=== PATIENT | male | born 1955 | race Two or more races ===

== ENCOUNTER 2017-09-07 17:57 | Inpatient (IN) | payer MEDICAID ==
[~2017-09-07] VITALS: Ht 180.3 cm; Wt 124.3 kg
[2017-09-07 18:00] VITALS: BP 159/72
[2017-09-07] MEDS ORDERED: Morphine Sulfate 4mg/ml Inj IVP ONE (18:15)
[2017-09-07] MEDS ORDERED: Nitroglycerin 2% oint pkt TOPIC ONE (18:15)
[2017-09-07 18:35] LABS: APPEARANCE,URINE CLEAR; KETONES,URINE 2+ (NEGATIVE); LEUKOCYTE ESTERASE ,URINE 2+ (NEGATIVE); NITRITE,URINE NEGATIVE (NEGATIVE); PH,URINE 5 (4.5-8.0); PROTEIN,URINE NEGATIVE (NEGATIVE); UROBILINOGEN,URINE NORMAL MG/DL (0.0-1.0)
[2017-09-07 18:48] LABS: WBC,URINE 15-20 /HPF (0 - 0)
[2017-09-07 18:49] LABS: ALANINE AMINOTRANSFERASE 32 U/L (12-78); ALBUMIN/GLOBULIN RATIO 0.9 (1.0-2.7); ASPARTATE AMINO TRANSFERASE 19 U/L (15-37); CALCIUM 9.1 MG/DL (8.5-10.1); CARBON DIOXIDE 27 MMOL/L (21-32); CHLORIDE 99 MMOL/L (98-107); CREATININE 1.1 MG/DL (0.55-1.00); GLOMERULAR FILTRATION RATE > 60 mL/min (>60); SODIUM 133 MMOL/L (136-145)
[2017-09-07 18:49] LABS: BACTERIA,URINE FEW /HPF; SQUAMOUS EPITHELIAL CELL,UR FEW /LPF (NONE/OCC)
[2017-09-07 18:53] LABS: ANION GAP 7 (5-15)
[2017-09-07 18:54] LABS: MEAN CORPUSCULAR HEMOGLOBIN 29.5 PG (27.0-31.0); MEAN CORPUSCULAR HGB CONC 30.6 G/DL (32.0-36.0); MEAN CORPUSCULAR VOLUME 96 FL (80-99); MEAN PLATELET VOLUME 6.9 FL (6.5-10.1); PLATELET COUNT 237 K/UL (150-450); RED BLOOD COUNT 5.17 M/UL (4.70-6.10); RED CELL DISTRIBUTION WIDTH 12.3 % (11.6-14.8); WHITE BLOOD COUNT 18.4 K/UL (4.8-10.8)
[2017-09-07 18:55] LABS: EOSINOPHILS % (AUTO) 0.6 % (0.0-3.0); LYMPHOCYTES % (AUTO) 15.6 % (20.0-45.0); MONOCYTES % (AUTO) 7.5 % (1.0-10.0); NEUTROPHILS % (AUTO) 75.7 % (45.0-75.0)
[2017-09-07 18:56] LABS: BASOPHILS % (AUTO) 0.6 % (0.0-2.0)
[2017-09-07 18:58] LABS: PROTHROMBIN TIME 10.8 SEC (9.30-11.50)
[2017-09-07] MEDS ORDERED: NKM (19:13)
[2017-09-07 19:55] VITALS: BP 134/72
[2017-09-07] MEDS ORDERED: cefTRIAXone 1 GM in NS 55 ML IVPB ONE (20:15)
[2017-09-07 21:24] VITALS: BP 118/64
[2017-09-07 21:24] LABS: REFLEX LACTIC ACID YES OR NO YES
--- NOTE | 2017-09-07 21:55 | Emergency Room Report ---
History of Present Illness General Chief Complaint: Chest Pain Source: Patient Present Illness HPI The patient presents with chest pain. He is shortness of breath. Also broke out in sweats the last 2 days. He denies any productive cough at this time. The pain is pleuritic but also somewhat exertional. Left-sided gaze up into her shoulder. The patient has had pain like this in the past. He states he was 23 when he had similar pain. He is a member what the diagnosis was stopped at that time. Patient has risk factors of diabetes he does not smoke. No HTN. The patient did not take any medication for this. No dysuria, rashes. Allergies: Coded Allergies: No Known Allergies (Unverified , 09/07/17) Patient History Past Medical History: see triage record Social History: Denies: smoking, alcohol use, drug use Social History Narrative at home Reviewed Nursing Documentation: PMH: Agreed, PSxH: Agreed Nursing Documentation-PMH Past Medical History: No Stated History Review of Systems All Other Systems: negative except mentioned in HPI Physical Exam Vital Signs Date Time Temp Pulse Resp B/P (MAP) Pulse Ox O2 Delivery O2 Flow Rate FiO2 09/07/17 17:59 99.7 108 20 172/74 95 Room Air Sp02 EP Interpretation: reviewed, normal General Appearance: well appearing, no apparent distress, GCS 15 Head: normocephalic Eyes: bilateral eye normal inspection, bilateral eye PERRL ENT: moist mucus membranes Neck: supple Respiratory: lungs clear, normal breath sounds Cardiovascular #1: regular rate, rhythm Cardiovascular #2: 2+ radial (R) Gastrointestinal: normal inspection, normal bowel sounds, non tender, no mass, non-distended Musculoskeletal: back normal, gait/station normal, normal range of motion Neurologic: alert, oriented x3, grossly normal Psychiatric: mood/affect normal Skin: normal inspection, warm/dry Medical Decision Making Diagnostic Impression: Primary Impression: Sepsis Qualified Codes: A41.9 - Sepsis, unspecified organism Additional Impression: Left lower lobe pneumonia Qualified Codes: J18.1 - Lobar pneumonia, unspecified organism ER Course Patient presents with diaphoresis and chest pain. He is also febrile here. Differential includes acute myocardial infarction, acute coronary syndrome, pneumonia, bronchitis, sepsis amongst others. Evaluation will be with blood cultures, EKG, chest x-ray and labs. The patient be treated with IV hydration, aspirin, Tylenol. The patient x-ray reveals a left-sided infiltrate. His EKG does not show any acute injury. White count is 18,000 lactate is elevated. Glucose slightly elevated. Antibiotics are begun. Fluid bolus for sepsis begun. With treatment the patient is improved. Admit med Dr. Dumont. Laboratory Tests Test 09/07/17 18:00 09/07/17 18:15 09/07/17 18:20 White Blood Count 18.4 K/UL (4.8-10.8) H Red Blood Count 5.17 M/UL (4.70-6.10) Hemoglobin 15.3 G/DL (14.2-18.0) Hematocrit 49.8 % (42.0-52.0) Mean Corpuscular Volume 96 FL (80-99) Mean Corpuscular Hemoglobin 29.5 PG (27.0-31.0) Mean Corpuscular Hemoglobin Concent 30.6 G/DL (32.0-36.0) L Red Cell Distribution Width 12.3 % (11.6-14.8) Platelet Count 237 K/UL (150-450) Mean Platelet Volume 6.9 FL (6.5-10.1) Neutrophils (%) (Auto) 75.7 % (45.0-75.0) H Lymphocytes (%) (Auto) 15.6 % (20.0-45.0) L Monocytes (%) (Auto) 7.5 % (1.0-10.0) Eosinophils (%) (Auto) 0.6 % (0.0-3.0) Basophils (%) (Auto) 0.6 % (0.0-2.0) Prothrombin Time 10.8 SEC (9.30-11.50) Prothrombin Time INR 1.0 (0.9-1.1) PTT 27 SEC (23-33) D-Dimer 266 ng/mL (<500) Sodium Level 133 MMOL/L (136-145) L Potassium Level 4.0 MMOL/L (3.5-5.1) Chloride Level 99 MMOL/L (98-107) Carbon Dioxide Level 27 MMOL/L (21-32) Anion Gap 7 (5-15) Blood Urea Nitrogen 13 mg/dL (7-18) Creatinine 1.1 MG/DL (0.55-1.00) H Estimate Glomerular Filtration Rate > 60 mL/min (>60) Glucose Level 254 MG/DL (74-106) H Calcium Level 9.1 MG/DL (8.5-10.1) Total Bilirubin 0.4 MG/DL (0.2-1.0) Aspartate Amino Transferase (AST) 19 U/L (15-37) Alanine Aminotransferase (ALT) 32 U/L (12-78) Alkaline Phosphatase 123 U/L (46-116) H Lactate Dehydrogenase 189 U/L (81-234) Total Creatine Kinase 86 U/L (26-308) Troponin I 0.000 ng/mL (0.000-0.056) Pro-B-Type Natriuretic Peptide 64 (0-125) Total Protein 8.0 G/DL (6.4-8.2) Albumin 3.8 G/DL (3.4-5.0) Globulin 4.2 g/dL Albumin/Globulin Ratio 0.9 (1.0-2.7) L Urine Color Pale yellow Urine Appearance Clear Urine pH 5 (4.5-8.0) Urine Specific [place] 1.020 (1.005-1.035) Urine Protein Negative (NEGATIVE) Urine Glucose (UA) 4+ (NEGATIVE) H Urine Ketones 2+ (NEGATIVE) H Urine Occult Blood Negative (NEGATIVE) Urine Nitrite Negative (NEGATIVE) Urine Bilirubin Negative (NEGATIVE) Urine Urobilinogen Normal MG/DL (0.0-1.0) Urine Leukocyte Esterase 2+ (NEGATIVE) H Urine RBC 2-4 /HPF (0 - 0) H Urine WBC 15-20 /HPF (0 - 0) H Urine Squamous Epithelial Cells Few /LPF (NONE/OCC) Urine Bacteria Few /HPF (NONE) Lactic Acid Level 2.40 mmol/L (0.66-2.22) H EKG Diagnostic Results ST Segments: no acute changes Rhythm Strip Diag. Results EP Interpretation: yes Rhythm: no PVC's, no ectopy, other - Sinus tachycardia Chest X-Ray Diagnostic Results Chest X-Ray Diagnostic Results : Chest X-Ray Ordered: Yes # of Views/Limited/Complete: 1 View Indication: Chest Pain EP Interpretation: Yes Interpretation: no effusion, no pneumothorax, other - Left lower lobe infiltrate Impression: Other Electronically Signed by: Electronically signed by Moi Newell MD Last Vital Signs Date Time Temp Pulse Resp B/P (MAP) Pulse Ox O2 Delivery O2 Flow Rate FiO2 09/08/17 00:15 98.6 77 18 131/81 96 Room Air Status: improved Disposition: ADMITTED INPATIENT Condition: Serious Referrals: NOT CHOSEN JOHN/,REFERRING (PCP) Moi Newell M.D. Sep 07, 2017 21:55
[2017-09-07] MEDS ORDERED: NS 1000ml 3,400 ML IVLG ONE (22:00)
[2017-09-07] MEDS ORDERED: Morphine Sulfate 4mg/ml Inj IVP PRN (22:30)
[2017-09-07] MEDS ORDERED: Miralax 17gm pkt ORAL PRN (22:30)
[2017-09-07] MEDS ORDERED: Albuterol/Ipratropium 3ml neb HHN PRN (22:30)
[2017-09-07] MEDS ORDERED: LORazepam Inj 2mg/ml 1ml IV PRN (22:30)
[2017-09-07 22:56] VITALS: BP 123/67
[2017-09-07] MEDS ORDERED: Vancomycin 1 GM in D5W 275 ML IV SCH (23:00)
[2017-09-08 00:15] VITALS: BP 131/81
[2017-09-08] MEDS ORDERED: Vancomycin 1250mg/D5W 250ml IVPB SCH (01:00)
[2017-09-08 04:00] VITALS: BP_SYST 114; BP_SYST 118; BP_DIAS 72; BP_DIAS 74
[2017-09-08 07:45] LABS: BASOPHILS % (AUTO) 0.6 % (0.0-2.0); EOSINOPHILS % (AUTO) 0.9 % (0.0-3.0); LYMPHOCYTES % (AUTO) 26.8 % (20.0-45.0); MEAN CORPUSCULAR HEMOGLOBIN 31.2 PG (27.0-31.0); MEAN CORPUSCULAR HGB CONC 33.6 G/DL (32.0-36.0); MEAN CORPUSCULAR VOLUME 93 FL (80-99); MEAN PLATELET VOLUME 7.7 FL (6.5-10.1); MONOCYTES % (AUTO) 13.4 % (1.0-10.0); NEUTROPHILS % (AUTO) 58.3 % (45.0-75.0); PLATELET COUNT 231 K/UL (150-450); RED BLOOD COUNT 4.73 M/UL (4.70-6.10); WHITE BLOOD COUNT 11.7 K/UL (4.8-10.8)
[2017-09-08 07:56] VITALS: BP 139/79
[2017-09-08 08:17] LABS: ANION GAP 8 (5-15); CARBON DIOXIDE 24 MMOL/L (21-32); CHLORIDE 102 MMOL/L (98-107); CREATININE 0.9 MG/DL (0.55-1.30); GLOMERULAR FILTRATION RATE > 60 mL/min (>60); PHOSPHORUS 2.9 MG/DL (2.5-4.9); POTASSIUM 3.6 MMOL/L (3.5-5.1); SODIUM 134 MMOL/L (136-145)
[2017-09-08] MEDS: Heparin 5000 units/ml inj SUBQ SCH ×2 (08:47→20:31)
[2017-09-08] MEDS ORDERED: Cefepime HCl 2 GM in D5W 110 ML IV SCH (09:00)
--- NOTE | 2017-09-08 10:20 | Diagnostic Imaging Report ---
Indication: Dyspnea Comparison: None A single view chest radiograph was obtained. Findings: Interstitial densities, vascular prominence and cardiomegaly [place]. Bones are unremarkable. Impression: Suspected mild interstitial edema/CHF
[2017-09-08 11:44] VITALS: BP 120/80
--- NOTE | 2017-09-08 12:21 | Consultation ---
History of Present Illness General Date patient seen: Sep 08, 2017 Chief Complaint: Chest Pain Present Illness HPI 62 year old male with hx of DM presented with chest pain. He is shortness of breath. Also broke out in sweats the last 2 days. He denies any productive cough at this time. The pain is pleuritic but also somewhat exertional. He was febrile and had interstitial marking on the cxr. He is admitted to telemetry for further work up. Allergies: Coded Allergies: No Known Allergies (Unverified , 09/07/17) Medication History Scheduled No Known Medications* (NKM - No Known Medications*), 0 ., (Reported) Patient History Healthcare decision maker Resuscitation status Full Code Advanced Directive on File No Past Medical/Surgical History Past Medical/Surgical History: (1) Diabetes mellitus Review of Systems Constitutional: Reports: no symptoms Eye: Reports: no symptoms Respiratory: Reports: no symptoms Cardiovascular: Reports: no symptoms All Other Systems: negative except mentioned in HPI Physical Exam General Appearance: WD/WN, no apparent distress Lines, tubes and drains: peripheral HEENT: normocephalic, atraumatic Neck: non-tender, supple Respiratory/Chest: chest wall non-tender, lungs clear Cardiovascular/Chest: normal peripheral pulses, normal rate Abdomen: normal bowel sounds, non tender Genitourinary/Rectal: normal genital exam Extremities: normal range of motion Skin Exam: normal pigmentation Last 24 Hour Vital Signs Date Time Temp Pulse Resp B/P (MAP) Pulse Ox O2 Delivery O2 Flow Rate FiO2 09/08/17 11:44 97.5 76 18 120/80 95 Room Air 09/08/17 08:00 78 09/08/17 07:56 97.5 70 18 139/79 95 Room Air 09/08/17 07:20 77 20 Room Air 21 09/08/17 04:00 97.7 71 20 114/72 93 Room Air 09/08/17 04:00 69 09/08/17 00:15 98.6 77 18 131/81 96 Room Air 09/08/17 00:08 98.6 89 18 123/67 95 Room Air 09/07/17 23:56 98.6 09/07/17 22:56 98.6 89 18 123/67 95 Room Air 09/07/17 21:24 100.7 99 18 118/64 95 Room Air 09/07/17 19:55 101.2 109 17 134/72 95 Room Air 09/07/17 18:21 159/72 09/07/17 18:00 100.1 108 18 159/72 97 Room Air 09/07/17 18:00 108 18 Room Air 09/07/17 17:59 99.7 108 20 172/74 95 Room Air Intake and Output 09/08/17 09/09/17 19:00 07:00 Intake Total 360 ml Balance 360 ml Intake Oral 360 ml # Bowel Movements 1 Laboratory Tests Test 09/07/17 18:00 09/07/17 18:15 09/07/17 18:20 09/07/17 21:53 White Blood Count 18.4 K/UL (4.8-10.8) H Red Blood Count 5.17 M/UL (4.70-6.10) Hemoglobin 15.3 G/DL (14.2-18.0) Hematocrit 49.8 % (42.0-52.0) Mean Corpuscular Volume 96 FL (80-99) Mean Corpuscular Hemoglobin 29.5 PG (27.0-31.0) Mean Corpuscular Hemoglobin Concent 30.6 G/DL (32.0-36.0) L Red Cell Distribution Width 12.3 % (11.6-14.8) Platelet Count 237 K/UL (150-450) Mean Platelet Volume 6.9 FL (6.5-10.1) Neutrophils (%) (Auto) 75.7 % (45.0-75.0) H Lymphocytes (%) (Auto) 15.6 % (20.0-45.0) L Monocytes (%) (Auto) 7.5 % (1.0-10.0) Eosinophils (%) (Auto) 0.6 % (0.0-3.0) Basophils (%) (Auto) 0.6 % (0.0-2.0) Prothrombin Time 10.8 SEC (9.30-11.50) Prothromb Time International Ratio 1.0 (0.9-1.1) Activated Partial Thromboplast Time 27 SEC (23-33) D-Dimer 266 ng/mL (<500) Sodium Level 133 MMOL/L (136-145) L Potassium Level 4.0 MMOL/L (3.5-5.1) Chloride Level 99 MMOL/L (98-107) Carbon Dioxide Level 27 MMOL/L (21-32) Anion Gap 7 (5-15) Blood Urea Nitrogen 13 mg/dL (7-18) Creatinine 1.1 MG/DL (0.55-1.00) H Estimat Glomerular Filtration Rate > 60 mL/min (>60) Glucose Level 254 MG/DL (74-106) H Calcium Level 9.1 MG/DL (8.5-10.1) Total Bilirubin 0.4 MG/DL (0.2-1.0) Aspartate Amino Transf (AST/SGOT) 19 U/L (15-37) Alanine Aminotransferase (ALT/SGPT) 32 U/L (12-78) Alkaline Phosphatase 123 U/L (46-116) H Lactate Dehydrogenase 189 U/L (81-234) Total Creatine Kinase 86 U/L (26-308) Troponin I 0.000 ng/mL (0.000-0.056) Pro-B-Type Natriuretic Peptide 64 (0-125) Total Protein 8.0 G/DL (6.4-8.2) Albumin 3.8 G/DL (3.4-5.0) Globulin 4.2 g/dL Albumin/Globulin Ratio 0.9 (1.0-2.7) L Urine Color Pale yellow Urine Appearance Clear Urine pH 5 (4.5-8.0) Urine Specific [place] 1.020 (1.005-1.035) Urine Protein Negative (NEGATIVE) Urine Glucose (UA) 4+ (NEGATIVE) H Urine Ketones 2+ (NEGATIVE) H Urine Occult Blood Negative (NEGATIVE) Urine Nitrite Negative (NEGATIVE) Urine Bilirubin Negative (NEGATIVE) Urine Urobilinogen Normal MG/DL (0.0-1.0) Urine Leukocyte Esterase 2+ (NEGATIVE) H Urine RBC 2-4 /HPF (0 - 0) H Urine WBC 15-20 /HPF (0 - 0) H Urine Squamous Epithelial Cells Few /LPF (NONE/OCC) Urine Bacteria Few /HPF (NONE) Lactic Acid Level 2.40 mmol/L (0.66-2.22) H 1.80 mmol/L (0.66-2.22) Test 09/08/17 07:15 White Blood Count 11.7 K/UL (4.8-10.8) H Red Blood Count 4.73 M/UL (4.70-6.10) Hemoglobin 14.8 G/DL (14.2-18.0) Hematocrit 44.0 % (42.0-52.0) Mean Corpuscular Volume 93 FL (80-99) Mean Corpuscular Hemoglobin 31.2 PG (27.0-31.0) H Mean Corpuscular Hemoglobin Concent 33.6 G/DL (32.0-36.0) Red Cell Distribution Width 12.0 % (11.6-14.8) Platelet Count 231 K/UL (150-450) Mean Platelet Volume 7.7 FL (6.5-10.1) Neutrophils (%) (Auto) 58.3 % (45.0-75.0) Lymphocytes (%) (Auto) 26.8 % (20.0-45.0) Monocytes (%) (Auto) 13.4 % (1.0-10.0) H Eosinophils (%) (Auto) 0.9 % (0.0-3.0) Basophils (%) (Auto) 0.6 % (0.0-2.0) Sodium Level 134 MMOL/L (136-145) L Potassium Level 3.6 MMOL/L (3.5-5.1) Chloride Level 102 MMOL/L (98-107) Carbon Dioxide Level 24 MMOL/L (21-32) Anion Gap 8 (5-15) Blood Urea Nitrogen 10 mg/dL (7-18) Creatinine 0.9 MG/DL (0.55-1.30) Estimat Glomerular Filtration Rate > 60 mL/min (>60) Glucose Level 185 MG/DL (74-106) H Calcium Level 8.0 MG/DL (8.5-10.1) L Phosphorus Level 2.9 MG/DL (2.5-4.9) Albumin 2.9 G/DL (3.4-5.0) L Height (Feet): 5 Height (Inches): 11.00 Weight (Pounds): 274 Medications Current Medications Medications (Trade) Dose Ordered Sig/Jenn Route PRN Reason Start Time Stop Time Status Last Admin Dose Admin Acetaminophen (Tylenol) 650 mg Q4H PRN ORAL FEVER 09/07/17 22:30 10/07/17 22:29 Albuterol/ Ipratropium (DuoNeb 0.5-3(2.5)mg/3ml) 3 ml EVERY 4 HOURS PRN HHN Shortness of Breath 09/07/17 22:30 09/12/17 22:29 Cefepime HCl 2 gm/ Dextrose 110 ml @ 220 mls/hr EVERY 12 HOURS IV 09/08/17 09:00 09/15/17 08:59 09/08/17 08:46 Dextrose (Dextrose 50%) STAT PRN IV Hypoglycemia 09/07/17 22:30 10/07/17 22:29 Heparin Sodium (Porcine) (Heparin 5000 units/ml) 5,000 units EVERY 12 HOURS SUBQ 09/08/17 09:00 10/08/17 08:59 09/08/17 08:47 Lorazepam (Ativan 2mg/ml 1ml) 2 mg EVERY 2 HOURS PRN IV For Anxiety 09/07/17 22:30 09/14/17 22:29 Morphine Sulfate (Morphine Sulfate) 4 mg EVERY 4 HOURS PRN IVP Severe Pain (Pain Scale 7-10) 09/07/17 22:30 09/14/17 22:29 Ondansetron HCl (Zofran) 4 mg Q6H PRN IVP Nausea & Vomiting 09/07/17 22:30 10/07/17 22:29 Polyethylene Glycol (Miralax) 17 gm DAILYPRN PRN ORAL Constipation 09/07/17 22:30 10/07/17 22:29 Sodium Chloride 1,000 ml @ 50 mls/hr Q20H IV 09/07/17 22:50 10/07/17 22:49 09/08/17 00:51 Vancomycin HCl (Vanco rx to dose) 1 ea DAILY PRN MISC PER RX PROTOCOL 09/08/17 07:45 10/08/17 07:44 Vancomycin HCl/ Dextrose 250 ml @ 125 mls/hr Q12HR@0100,1300 IVPB 09/08/17 13:00 09/13/17 12:59 Assessment/Plan Problem List: (1) Sepsis ICD Codes: A41.9 - Sepsis, unspecified organism SNOMED: 83440594 Qualifiers: Qualified Codes: A41.9 - Sepsis, unspecified organism (2) Pleuritis ICD Codes: R09.1 - Pleurisy SNOMED: 880638961 (3) Diabetes mellitus ICD Codes: E11.9 - Type 2 diabetes mellitus without complications SNOMED: 98937147 Assessment/Plan feliz culture IV abx check sputum echo f/u cxr in one day. KAMERON CALABRESE Sep 08, 2017 12:21
[2017-09-08] MEDS: Vancomycin 1.5 GM/D5W 250ML IVPB SCH (13:14)
[2017-09-08] MEDS ORDERED: Tubing IV Secondary IV ONE (14:10)
[2017-09-08] MEDS ORDERED: 1/2 NS 1000ml IV ONE (14:10)
--- NOTE | 2017-09-08 14:49 | Consultation ---
History of Present Illness General Date patient seen: Sep 08, 2017 Time patient seen: 14:48 Chief Complaint: Chest Pain Reason for Consultation: fever Present Illness HPI 62 y.o M with hx of DM2 presents to ED on 09/07 with chest pain, SOB and diaphoresis Denies cough, diarrhea, dysuria,r julian, MCDONALD. Patient febrile up to 101.2, now afebrile in >12hrs. Initial leukocytosis to 18 , now down to 11.7. CXR with pulm edema but no obvious infiltrates. Flu neg. Started on IV Vanco and Cefepime Feeling better now Allergies: Coded Allergies: No Known Allergies (Unverified , 09/07/17) Medication History Scheduled No Known Medications* (NKM - No Known Medications*), 0 ., (Reported) Patient History Healthcare decision maker Resuscitation status Full Code Advanced Directive on File No Patient History Narrative PMHx as above SH: Denies: smoking, alcohol use, drug use FHx: non contributory Review of Systems All Other Systems: negative except mentioned in HPI Physical Exam Physical Exam Narrative General Appearance: WD/WN, no apparent distress Lines, tubes and drains: peripheral HEENT: normocephalic, atraumatic Neck: non-tender, supple Respiratory/Chest: chest wall non-tender, lungs clear Cardiovascular/Chest: normal peripheral pulses, normal rate Abdomen: normal bowel sounds, non tender Extremities: normal range of motion Skin Exam: normal pigmentation Last 24 Hour Vital Signs Date Time Temp Pulse Resp B/P (MAP) Pulse Ox O2 Delivery O2 Flow Rate FiO2 09/08/17 11:44 97.5 76 18 120/80 95 Room Air 09/08/17 08:00 78 09/08/17 07:56 97.5 70 18 139/79 95 Room Air 09/08/17 07:20 77 20 Room Air 21 09/08/17 04:00 97.7 71 20 114/72 93 Room Air 09/08/17 04:00 69 09/08/17 00:15 98.6 77 18 131/81 96 Room Air 09/08/17 00:08 98.6 89 18 123/67 95 Room Air 09/07/17 23:56 98.6 09/07/17 22:56 98.6 89 18 123/67 95 Room Air 09/07/17 21:24 100.7 99 18 118/64 95 Room Air 09/07/17 19:55 101.2 109 17 134/72 95 Room Air 09/07/17 18:21 159/72 09/07/17 18:00 100.1 108 18 159/72 97 Room Air 09/07/17 18:00 108 18 Room Air 09/07/17 17:59 99.7 108 20 172/74 95 Room Air Intake and Output 09/08/17 09/09/17 19:00 07:00 Intake Total 1190 ml Output Total 900 ml Balance 290 ml Intake Oral 720 ml IV Total 470 ml Output Urine Total 900 ml # Bowel Movements 1 Laboratory Tests Test 09/07/17 18:00 09/07/17 18:15 09/07/17 18:20 09/07/17 21:53 White Blood Count 18.4 K/UL (4.8-10.8) H Red Blood Count 5.17 M/UL (4.70-6.10) Hemoglobin 15.3 G/DL (14.2-18.0) Hematocrit 49.8 % (42.0-52.0) Mean Corpuscular Volume 96 FL (80-99) Mean Corpuscular Hemoglobin 29.5 PG (27.0-31.0) Mean Corpuscular Hemoglobin Concent 30.6 G/DL (32.0-36.0) L Red Cell Distribution Width 12.3 % (11.6-14.8) Platelet Count 237 K/UL (150-450) Mean Platelet Volume 6.9 FL (6.5-10.1) Neutrophils (%) (Auto) 75.7 % (45.0-75.0) H Lymphocytes (%) (Auto) 15.6 % (20.0-45.0) L Monocytes (%) (Auto) 7.5 % (1.0-10.0) Eosinophils (%) (Auto) 0.6 % (0.0-3.0) Basophils (%) (Auto) 0.6 % (0.0-2.0) Prothrombin Time 10.8 SEC (9.30-11.50) Prothromb Time International Ratio 1.0 (0.9-1.1) Activated Partial Thromboplast Time 27 SEC (23-33) D-Dimer 266 ng/mL (<500) Sodium Level 133 MMOL/L (136-145) L Potassium Level 4.0 MMOL/L (3.5-5.1) Chloride Level 99 MMOL/L (98-107) Carbon Dioxide Level 27 MMOL/L (21-32) Anion Gap 7 (5-15) Blood Urea Nitrogen 13 mg/dL (7-18) Creatinine 1.1 MG/DL (0.55-1.00) H Estimat Glomerular Filtration Rate > 60 mL/min (>60) Glucose Level 254 MG/DL (74-106) H Calcium Level 9.1 MG/DL (8.5-10.1) Total Bilirubin 0.4 MG/DL (0.2-1.0) Aspartate Amino Transf (AST/SGOT) 19 U/L (15-37) Alanine Aminotransferase (ALT/SGPT) 32 U/L (12-78) Alkaline Phosphatase 123 U/L (46-116) H Lactate Dehydrogenase 189 U/L (81-234) Total Creatine Kinase 86 U/L (26-308) Troponin I 0.000 ng/mL (0.000-0.056) Pro-B-Type Natriuretic Peptide 64 (0-125) Total Protein 8.0 G/DL (6.4-8.2) Albumin 3.8 G/DL (3.4-5.0) Globulin 4.2 g/dL Albumin/Globulin Ratio 0.9 (1.0-2.7) L Urine Color Pale yellow Urine Appearance Clear Urine pH 5 (4.5-8.0) Urine Specific [place] 1.020 (1.005-1.035) Urine Protein Negative (NEGATIVE) Urine Glucose (UA) 4+ (NEGATIVE) H Urine Ketones 2+ (NEGATIVE) H Urine Occult Blood Negative (NEGATIVE) Urine Nitrite Negative (NEGATIVE) Urine Bilirubin Negative (NEGATIVE) Urine Urobilinogen Normal MG/DL (0.0-1.0) Urine Leukocyte Esterase 2+ (NEGATIVE) H Urine RBC 2-4 /HPF (0 - 0) H Urine WBC 15-20 /HPF (0 - 0) H Urine Squamous Epithelial Cells Few /LPF (NONE/OCC) Urine Bacteria Few /HPF (NONE) Lactic Acid Level 2.40 mmol/L (0.66-2.22) H 1.80 mmol/L (0.66-2.22) Test 09/08/17 07:15 White Blood Count 11.7 K/UL (4.8-10.8) H Red Blood Count 4.73 M/UL (4.70-6.10) Hemoglobin 14.8 G/DL (14.2-18.0) Hematocrit 44.0 % (42.0-52.0) Mean Corpuscular Volume 93 FL (80-99) Mean Corpuscular Hemoglobin 31.2 PG (27.0-31.0) H Mean Corpuscular Hemoglobin Concent 33.6 G/DL (32.0-36.0) Red Cell Distribution Width 12.0 % (11.6-14.8) Platelet Count 231 K/UL (150-450) Mean Platelet Volume 7.7 FL (6.5-10.1) Neutrophils (%) (Auto) 58.3 % (45.0-75.0) Lymphocytes (%) (Auto) 26.8 % (20.0-45.0) Monocytes (%) (Auto) 13.4 % (1.0-10.0) H Eosinophils (%) (Auto) 0.9 % (0.0-3.0) Basophils (%) (Auto) 0.6 % (0.0-2.0) Sodium Level 134 MMOL/L (136-145) L Potassium Level 3.6 MMOL/L (3.5-5.1) Chloride Level 102 MMOL/L (98-107) Carbon Dioxide Level 24 MMOL/L (21-32) Anion Gap 8 (5-15) Blood Urea Nitrogen 10 mg/dL (7-18) Creatinine 0.9 MG/DL (0.55-1.30) Estimat Glomerular Filtration Rate > 60 mL/min (>60) Glucose Level 185 MG/DL (74-106) H Calcium Level 8.0 MG/DL (8.5-10.1) L Phosphorus Level 2.9 MG/DL (2.5-4.9) Albumin 2.9 G/DL (3.4-5.0) L Microbiology Date/Time Source Procedure Growth Status 09/08/17 13:02 Nose Influenza Types A,B Antigen ([facility]) - Final Complete Height (Feet): 5 Height (Inches): 11.00 Weight (Pounds): 274 Medications Current Medications Medications (Trade) Dose Ordered Sig/Jenn Route PRN Reason Start Time Stop Time Status Last Admin Dose Admin Acetaminophen (Tylenol) 650 mg Q4H PRN ORAL FEVER 09/07/17 22:30 10/07/17 22:29 Albuterol/ Ipratropium (DuoNeb 0.5-3(2.5)mg/3ml) 3 ml EVERY 4 HOURS PRN HHN Shortness of Breath 09/07/17 22:30 09/12/17 22:29 Cefepime HCl 2 gm/ Dextrose 110 ml @ 220 mls/hr EVERY 12 HOURS IV 09/08/17 09:00 09/15/17 08:59 09/08/17 08:46 Dextrose (Dextrose 50%) STAT PRN IV Hypoglycemia 09/07/17 22:30 10/07/17 22:29 Heparin Sodium (Porcine) (Heparin 5000 units/ml) 5,000 units EVERY 12 HOURS SUBQ 09/08/17 09:00 10/08/17 08:59 09/08/17 08:47 Lorazepam (Ativan 2mg/ml 1ml) 2 mg EVERY 2 HOURS PRN IV For Anxiety 09/07/17 22:30 09/14/17 22:29 Morphine Sulfate (Morphine Sulfate) 4 mg EVERY 4 HOURS PRN IVP Severe Pain (Pain Scale 7-10) 09/07/17 22:30 09/14/17 22:29 Ondansetron HCl (Zofran) 4 mg Q6H PRN IVP Nausea & Vomiting 09/07/17 22:30 10/07/17 22:29 Polyethylene Glycol (Miralax) 17 gm DAILYPRN PRN ORAL Constipation 09/07/17 22:30 10/07/17 22:29 Sodium Chloride 1,000 ml @ 50 mls/hr Q20H IV 09/07/17 22:50 10/07/17 22:49 09/08/17 00:51 Vancomycin HCl (Vanco rx to dose) 1 ea DAILY PRN MISC PER RX PROTOCOL 09/08/17 07:45 10/08/17 07:44 Vancomycin HCl/ Dextrose 250 ml @ 125 mls/hr Q12HR@0100,1300 IVPB 09/08/17 13:00 09/13/17 12:59 09/08/17 13:14 Assessment/Plan Assessment/Plan Abx: IV Vanco/Cefepime 10/9 IV Ceftriaxone x1 108 Levaquin x1 10/ Assesment: SOB/Chest pain- multifactorial due to CHF and possible PNA FEver- possible PNA, r/o bacteremia/endocarditis CXR: Suspected mild interstitial edema/CHF Flu neg u/a mild pyuria ( wBC 15-20,nit neg, leuk +2); No UTI symptoms Bcx p Sp cx Leukocytosis, improving Dm2 Plan: -Continue IV Vanco for now pending Bcx and Echo -Transition IV Cefepime to Ceftriaxone for possible PNA -f/u Bcx and Sp cx -f/u echo -CXR 2 v alex am -Monitor CBC/BMP, temperatures Thank you for this consultation. Will continue to follow along with you. Discussed with GILMA. Phyllis Sampson M.D. Sep 08, 2017 14:49
[2017-09-08 16:00] VITALS: BP 122/88
[2017-09-08 20:00] VITALS: BP 126/84
[2017-09-08] MEDS ORDERED: cefTRIAXone 1 GM in D5W 55 ML IVPB SCH (20:00)
--- NOTE | 2017-09-08 23:11 | History & Physical ---
History and Physical History & Physicial Chief Complaint: Chest Pain Source: Patient Present Illness HPI his is a 62-year-old male with no past medical his presents to emergency for left shoulder pain that started yesterday. He states that pain is pleuritic. He denies a cough. He had subjective fever and chills. Initial leukocytosis to 18, now down to 11.7. CXR with pulm edema but no obvious infiltrates. Flu neg. Started on IV Vanco and Cefepime No dysuria, rashes. Allergies: Coded Allergies: No Known Allergies (Unverified , 09/07/17) Patient History Past Medical History: cataracts Social History: Denies: smoking, alcohol use, drug use Social History Narrative at home ER ROS - General Review of Systems All Other Systems: negative except mentioned in HPI ER Physical Exam - General Physical Exam Vital Signs Date Time Temp Pulse Resp B/P (MAP) Pulse Ox O2 Delivery O2 Flow Rate FiO2 09/07/17 17:59 99.7 108 20 172/74 95 Room Air Sp02 EP Interpretation: reviewed, normal General Appearance: well appearing, no apparent distress, GCS 15 Head: normocephalic Eyes: bilateral eye normal inspection, bilateral eye PERRL ENT: moist mucus membranes Neck: supple Respiratory: lungs clear, normal breath sounds Cardiovascular #1: regular rate, rhythm Cardiovascular #2: 2+ radial (R) Gastrointestinal: normal inspection, normal bowel sounds, non tender, no mass, non-distended Musculoskeletal: back normal, gait/station normal, normal range of motion Neurologic: alert, oriented x3, grossly normal Psychiatric: mood/affect normal Skin: normal inspection, warm/dry ER Procedures - General Procedures Laboratory Tests Test 09/07/17 18:00 09/07/17 18:15 09/07/17 18:20 White Blood Count 18.4 K/UL (4.8-10.8) H Red Blood Count 5.17 M/UL (4.70-6.10) Hemoglobin 15.3 G/DL (14.2-18.0) Hematocrit 49.8 % (42.0-52.0) Mean Corpuscular Volume 96 FL (80-99) Mean Corpuscular Hemoglobin 29.5 PG (27.0-31.0) Mean Corpuscular Hemoglobin Concent 30.6 G/DL (32.0-36.0) L Red Cell Distribution Width 12.3 % (11.6-14.8) Platelet Count 237 K/UL (150-450) Mean Platelet Volume 6.9 FL (6.5-10.1) Neutrophils (%) (Auto) 75.7 % (45.0-75.0) H Lymphocytes (%) (Auto) 15.6 % (20.0-45.0) L Monocytes (%) (Auto) 7.5 % (1.0-10.0) Eosinophils (%) (Auto) 0.6 % (0.0-3.0) Basophils (%) (Auto) 0.6 % (0.0-2.0) Prothrombin Time 10.8 SEC (9.30-11.50) Prothrombin Time INR 1.0 (0.9-1.1) PTT 27 SEC (23-33) D-Dimer 266 ng/mL (<500) Sodium Level 133 MMOL/L (136-145) L Potassium Level 4.0 MMOL/L (3.5-5.1) Chloride Level 99 MMOL/L (98-107) Carbon Dioxide Level 27 MMOL/L (21-32) Anion Gap 7 (5-15) Blood Urea Nitrogen 13 mg/dL (7-18) Creatinine 1.1 MG/DL (0.55-1.00) H Estimate Glomerular Filtration Rate > 60 mL/min (>60) Glucose Level 254 MG/DL (74-106) H Calcium Level 9.1 MG/DL (8.5-10.1) Total Bilirubin 0.4 MG/DL (0.2-1.0) Aspartate Amino Transferase (AST) 19 U/L (15-37) Alanine Aminotransferase (ALT) 32 U/L (12-78) Alkaline Phosphatase 123 U/L (46-116) H Lactate Dehydrogenase 189 U/L (81-234) Total Creatine Kinase 86 U/L (26-308) Troponin I 0.000 ng/mL (0.000-0.056) Pro-B-Type Natriuretic Peptide 64 (0-125) Total Protein 8.0 G/DL (6.4-8.2) Albumin 3.8 G/DL (3.4-5.0) Globulin 4.2 g/dL Albumin/Globulin Ratio 0.9 (1.0-2.7) L Urine Color Pale yellow Urine Appearance Clear Urine pH 5 (4.5-8.0) Urine Specific [place] 1.020 (1.005-1.035) Urine Protein Negative (NEGATIVE) Urine Glucose (UA) 4+ (NEGATIVE) H Urine Ketones 2+ (NEGATIVE) H Urine Occult Blood Negative (NEGATIVE) Urine Nitrite Negative (NEGATIVE) Urine Bilirubin Negative (NEGATIVE) Urine Urobilinogen Normal MG/DL (0.0-1.0) Urine Leukocyte Esterase 2+ (NEGATIVE) H Urine RBC 2-4 /HPF (0 - 0) H Urine WBC 15-20 /HPF (0 - 0) H Urine Squamous Epithelial Cells Few /LPF (NONE/OCC) Urine Bacteria Few /HPF (NONE) Lactic Acid Level 2.40 mmol/L (0.66-2.22) H EKG Diagnostic Results ST Segments: no acute changes Rhythm Strip Diag. Results EP Interpretation: yes Rhythm: no PVC's, no ectopy, other - Sinus tachycardia Chest X-Ray Diagnostic Results Chest X-Ray Diagnostic Results : Chest X-Ray Ordered: Yes # of Views/Limited/Complete: 1 View Indication: Chest Pain EP Interpretation: Yes Interpretation: no effusion, no pneumothorax, other - Left lower lobe infiltrate Impression: Other A/P Left shoulder pain - trend trop - telemetry fever - viral syndrome vs pna - abx - cefepime and vanco - ID consult - Pulmonary consult - f/u cultures and TTE dc planning 1-2 days NICOLE MILLER M.D. Sep 08, 2017 23:11
[2017-09-09] VITALS: BP_SYST 121; BP_SYST 137; BP_DIAS 75
[2017-09-09] MEDS: Vancomycin 1.5 GM/D5W 250ML IVPB SCH ×2 (01:07→13:51)
[2017-09-09 04:00] VITALS: BP 118/74
[2017-09-09 08:00] VITALS: BP 119/81
[2017-09-09 08:01] LABS: EOSINOPHILS % (AUTO) 2.5 % (0.0-3.0); LYMPHOCYTES % (AUTO) 39.5 % (20.0-45.0); MEAN CORPUSCULAR HEMOGLOBIN 31.7 PG (27.0-31.0); MEAN CORPUSCULAR HGB CONC 34.1 G/DL (32.0-36.0); MEAN CORPUSCULAR VOLUME 93 FL (80-99); MEAN PLATELET VOLUME 7.3 FL (6.5-10.1); MONOCYTES % (AUTO) 11.2 % (1.0-10.0); NEUTROPHILS % (AUTO) 45.8 % (45.0-75.0); PLATELET COUNT 239 K/UL (150-450); RED BLOOD COUNT 5.08 M/UL (4.70-6.10); RED CELL DISTRIBUTION WIDTH 12.2 % (11.6-14.8); WHITE BLOOD COUNT 8.5 K/UL (4.8-10.8)
--- NOTE | 2017-09-09 08:10 | Cardiology Report ---
APPROVED REPORT EKG Measurement Heart [id number] [id number] Sinus tachycardia Otherwise normal ECG
[2017-09-09] MEDS: Heparin 5000 units/ml inj SUBQ SCH (08:22)
[2017-09-09 08:40] LABS: ALANINE AMINOTRANSFERASE 21 U/L (12-78); ALBUMIN/GLOBULIN RATIO 0.8 (1.0-2.7); ANION GAP 10 (5-15); ASPARTATE AMINO TRANSFERASE 15 U/L (15-37); CALCIUM 8.3 MG/DL (8.5-10.1); CARBON DIOXIDE 24 MMOL/L (21-32); CHLORIDE 105 MMOL/L (98-107); GLOMERULAR FILTRATION RATE > 60 mL/min (>60); POTASSIUM 3.7 MMOL/L (3.5-5.1); SODIUM 139 MMOL/L (136-145); TOTAL PROTEIN 6.7 G/DL (6.4-8.2)
[2017-09-09 11:39] VITALS: BP 123/81
--- NOTE | 2017-09-09 13:51 | Diagnostic Imaging Report ---
Indication: CP Technique: 2 views of the chest Comparison: none. Findings: Lungs and pleural spaces are clear. Heart size is normal. There are degenerative changes of the thoracic spine. No significant interim change Impression: No acute process
--- NOTE | 2017-09-09 15:42 | Internal Med Progress Note ---
Subjective Physician Name Moi Miller Attending Physician Moi Miller M.D. Current Medications Medications (Trade) Dose Ordered Sig/Jenn Route PRN Reason Start Time Stop Time Status Last Admin Dose Admin Acetaminophen (Tylenol) 650 mg Q4H PRN ORAL FEVER 09/07/17 22:30 10/07/17 22:29 Albuterol/ Ipratropium (DuoNeb 0.5-3(2.5)mg/3ml) 3 ml EVERY 4 HOURS PRN HHN Shortness of Breath 09/07/17 22:30 09/12/17 22:29 Ceftriaxone Sodium 1 gm/ Dextrose 55 ml @ 110 mls/hr Q24H IVPB 09/08/17 20:00 09/15/17 19:59 09/08/17 20:21 Dextrose (Dextrose 50%) STAT PRN IV Hypoglycemia 09/07/17 22:30 10/07/17 22:29 Heparin Sodium (Porcine) (Heparin 5000 units/ml) 5,000 units EVERY 12 HOURS SUBQ 09/08/17 09:00 10/08/17 08:59 09/09/17 08:22 Lorazepam (Ativan 2mg/ml 1ml) 2 mg EVERY 2 HOURS PRN IV For Anxiety 09/07/17 22:30 09/14/17 22:29 Morphine Sulfate (Morphine Sulfate) 4 mg EVERY 4 HOURS PRN IVP Severe Pain (Pain Scale 7-10) 09/07/17 22:30 09/14/17 22:29 Ondansetron HCl (Zofran) 4 mg Q6H PRN IVP Nausea & Vomiting 09/07/17 22:30 10/07/17 22:29 Polyethylene Glycol (Miralax) 17 gm DAILYPRN PRN ORAL Constipation 09/07/17 22:30 10/07/17 22:29 Vancomycin HCl (Vanco rx to dose) 1 ea DAILY PRN MISC PER RX PROTOCOL 09/08/17 07:45 10/08/17 07:44 Vancomycin HCl/ Dextrose 250 ml @ 125 mls/hr Q12HR@0100,1300 IVPB 09/08/17 13:00 09/13/17 12:59 09/09/17 13:51 Allergies: Coded Allergies: No Known Allergies (Unverified , 09/07/17) Objective Last Vital Signs Date Time Temp Pulse Resp B/P (MAP) Pulse Ox O2 Delivery O2 Flow Rate FiO2 09/09/17 12:00 82 09/09/17 11:39 98.2 19 123/81 93 Room Air 09/09/17 07:30 21 Laboratory Tests Test 09/09/17 07:30 White Blood Count 8.5 K/UL (4.8-10.8) Red Blood Count 5.08 M/UL (4.70-6.10) Hemoglobin 16.1 G/DL (14.2-18.0) Hematocrit 47.3 % (42.0-52.0) Mean Corpuscular Volume 93 FL (80-99) Mean Corpuscular Hemoglobin 31.7 PG (27.0-31.0) H Mean Corpuscular Hemoglobin Concent 34.1 G/DL (32.0-36.0) Red Cell Distribution Width 12.2 % (11.6-14.8) Platelet Count 239 K/UL (150-450) Mean Platelet Volume 7.3 FL (6.5-10.1) Neutrophils (%) (Auto) 45.8 % (45.0-75.0) Lymphocytes (%) (Auto) 39.5 % (20.0-45.0) Monocytes (%) (Auto) 11.2 % (1.0-10.0) H Eosinophils (%) (Auto) 2.5 % (0.0-3.0) Basophils (%) (Auto) 1.0 % (0.0-2.0) Sodium Level 139 MMOL/L (136-145) Potassium Level 3.7 MMOL/L (3.5-5.1) Chloride Level 105 MMOL/L (98-107) Carbon Dioxide Level 24 MMOL/L (21-32) Anion Gap 10 (5-15) Blood Urea Nitrogen 7 mg/dL (7-18) Creatinine 1.0 MG/DL (0.55-1.30) Estimat Glomerular Filtration Rate > 60 mL/min (>60) Glucose Level 179 MG/DL (74-106) H Calcium Level 8.3 MG/DL (8.5-10.1) L Total Bilirubin 0.4 MG/DL (0.2-1.0) Aspartate Amino Transf (AST/SGOT) 15 U/L (15-37) Alanine Aminotransferase (ALT/SGPT) 21 U/L (12-78) Alkaline Phosphatase 78 U/L (46-116) Troponin I 0.000 ng/mL (0.000-0.056) Pro-B-Type Natriuretic Peptide 1567 (0-125) H Total Protein 6.7 G/DL (6.4-8.2) Albumin 2.9 G/DL (3.4-5.0) L Globulin 3.8 g/dL Albumin/Globulin Ratio 0.8 (1.0-2.7) L HIV (1&2) Antibody Rapid Pending Microbiology Date/Time Source Procedure Growth Status 09/07/17 18:15 Blood Blood Culture - Preliminary NO GROWTH AFTER 24 HOURS Resulted 09/07/17 18:00 Blood Blood Culture - Preliminary NO GROWTH AFTER 24 HOURS Resulted 09/08/17 13:02 Nose Influenza Types A,B Antigen (CAROLA) - Final Complete 09/07/17 18:15 Urine,Clean Catch Urine Culture - Preliminary Mixed Gram Positive Organism Resulted Intake and Output 09/09/17 09/10/17 19:00 07:00 Intake Total 240 ml Balance 240 ml Intake Oral 240 ml # Bowel Movements 1 MOI MILLER M.D. Sep 09, 2017 15:42
[2017-09-09 16:00] VITALS: BP 123/90
--- NOTE | 2017-09-09 16:23 | Infectious Diseases Prog Note ---
Assessment/Plan Assessment/Plan Abx: IV Vanco 09/08- Cefepime 09/08 IV Ceftriaxone x1 09/07; 09/08- Levaquin x1 09/07 Assesment: SOB/Chest pain- Echo No evidence of pericardial or pleural effusion. No vegetations FEver- resolved- ?viral- CXR with no PNA, no UTI symptoms, Bcx NTD CXR 09/09 2v: NO acute process CXR: Suspected mild interstitial edema/CHF Flu neg u/a mild pyuria ( wBC 15-20,nit neg, leuk +2); Ucx: MIXED GRAM POSITIVE ORGANISM COLONY COUNT: 10,000 - 20,000 CFU/ML; No UTI symptoms Bcx NTD Leukocytosis, resolved Dm2 Plan: -D/C IV Vancomycin #2 as Bcx NTD -D/C Ceftriaxone #2 as no PNA on CXR -ok to discharge off abx (Patient was already discharged at the time of my evaluation, unclear to me if sent on PO abx or not) -f/u final Bcx -Monitor CBC/BMP, temperatures Discussed with RN. Subjective Allergies: Coded Allergies: No Known Allergies (Unverified , 09/07/17) Subjective afebrile VSS leukocytosis resolved CXR 2 v neg Bcx NTD Objective Vital Signs Last 24 Hour Vital Signs Date Time Temp Pulse Resp B/P (MAP) Pulse Ox O2 Delivery O2 Flow Rate FiO2 09/09/17 16:00 97.0 77 18 123/90 91 Room Air 09/09/17 12:00 82 09/09/17 11:39 98.2 76 19 123/81 93 Room Air 09/09/17 08:00 134 09/09/17 08:00 97.9 95 19 119/81 93 Room Air 09/09/17 07:30 75 20 Room Air 21 09/09/17 04:00 98.1 82 20 118/74 92 Room Air 09/09/17 04:00 89 09/09/17 00:00 100 09/09/17 00:00 98.4 97 20 121/75 Room Air 09/08/17 20:00 104 09/08/17 20:00 99.9 90 22 126/84 94 Room Air 09/08/17 19:30 80 20 Room Air 21 Height (Feet): 5 Height (Inches): 11.00 Weight (Pounds): 274 Objective not done as patient already discharged Microbiology Date/Time Source Procedure Growth Status 09/07/17 18:15 Blood Blood Culture - Preliminary NO GROWTH AFTER 24 HOURS Resulted 09/07/17 18:00 Blood Blood Culture - Preliminary NO GROWTH AFTER 24 HOURS Resulted 09/08/17 13:02 Nose Influenza Types A,B Antigen (CAROLA) - Final Complete 09/07/17 18:15 Urine,Clean Catch Urine Culture - Preliminary Mixed Gram Positive Organism Resulted Laboratory Tests Test 09/09/17 07:30 White Blood Count 8.5 K/UL (4.8-10.8) Red Blood Count 5.08 M/UL (4.70-6.10) Hemoglobin 16.1 G/DL (14.2-18.0) Hematocrit 47.3 % (42.0-52.0) Mean Corpuscular Volume 93 FL (80-99) Mean Corpuscular Hemoglobin 31.7 PG (27.0-31.0) H Mean Corpuscular Hemoglobin Concent 34.1 G/DL (32.0-36.0) Red Cell Distribution Width 12.2 % (11.6-14.8) Platelet Count 239 K/UL (150-450) Mean Platelet Volume 7.3 FL (6.5-10.1) Neutrophils (%) (Auto) 45.8 % (45.0-75.0) Lymphocytes (%) (Auto) 39.5 % (20.0-45.0) Monocytes (%) (Auto) 11.2 % (1.0-10.0) H Eosinophils (%) (Auto) 2.5 % (0.0-3.0) Basophils (%) (Auto) 1.0 % (0.0-2.0) Sodium Level 139 MMOL/L (136-145) Potassium Level 3.7 MMOL/L (3.5-5.1) Chloride Level 105 MMOL/L (98-107) Carbon Dioxide Level 24 MMOL/L (21-32) Anion Gap 10 (5-15) Blood Urea Nitrogen 7 mg/dL (7-18) Creatinine 1.0 MG/DL (0.55-1.30) Estimat Glomerular Filtration Rate > 60 mL/min (>60) Glucose Level 179 MG/DL (74-106) H Calcium Level 8.3 MG/DL (8.5-10.1) L Total Bilirubin 0.4 MG/DL (0.2-1.0) Aspartate Amino Transf (AST/SGOT) 15 U/L (15-37) Alanine Aminotransferase (ALT/SGPT) 21 U/L (12-78) Alkaline Phosphatase 78 U/L (46-116) Troponin I 0.000 ng/mL (0.000-0.056) Pro-B-Type Natriuretic Peptide 1567 (0-125) H Total Protein 6.7 G/DL (6.4-8.2) Albumin 2.9 G/DL (3.4-5.0) L Globulin 3.8 g/dL Albumin/Globulin Ratio 0.8 (1.0-2.7) L HIV (1&2) Antibody Rapid Pending Current Medications Medications (Trade) Dose Ordered Sig/Jenn Route PRN Reason Start Time Stop Time Status Last Admin Dose Admin Acetaminophen (Tylenol) 650 mg Q4H PRN ORAL FEVER 09/07/17 22:30 10/07/17 22:29 Albuterol/ Ipratropium (DuoNeb 0.5-3(2.5)mg/3ml) 3 ml EVERY 4 HOURS PRN HHN Shortness of Breath 09/07/17 22:30 09/12/17 22:29 Ceftriaxone Sodium 1 gm/ Dextrose 55 ml @ 110 mls/hr Q24H IVPB 09/08/17 20:00 09/15/17 19:59 09/08/17 20:21 Dextrose (Dextrose 50%) STAT PRN IV Hypoglycemia 09/07/17 22:30 10/07/17 22:29 Heparin Sodium (Porcine) (Heparin 5000 units/ml) 5,000 units EVERY 12 HOURS SUBQ 09/08/17 09:00 10/08/17 08:59 09/09/17 08:22 Lorazepam (Ativan 2mg/ml 1ml) 2 mg EVERY 2 HOURS PRN IV For Anxiety 09/07/17 22:30 09/14/17 22:29 Metoprolol Tartrate (Lopressor) 12.5 mg Q12HR ORAL 09/09/17 21:00 10/09/17 20:59 Morphine Sulfate (Morphine Sulfate) 4 mg EVERY 4 HOURS PRN IVP Severe Pain (Pain Scale 7-10) 09/07/17 22:30 09/14/17 22:29 Ondansetron HCl (Zofran) 4 mg Q6H PRN IVP Nausea & Vomiting 09/07/17 22:30 10/07/17 22:29 Polyethylene Glycol (Miralax) 17 gm DAILYPRN PRN ORAL Constipation 09/07/17 22:30 10/07/17 22:29 Vancomycin HCl (Vanco rx to dose) 1 ea DAILY PRN MISC PER RX PROTOCOL 09/08/17 07:45 10/08/17 07:44 Vancomycin HCl/ Dextrose 250 ml @ 125 mls/hr Q12HR@0100,1300 IVPB 09/08/17 13:00 09/13/17 12:59 09/09/17 13:51 Phyllis Sampson M.D. Sep 09, 2017 16:23
--- NOTE | 2017-09-09 17:10 | Cardiology Report ---
APPROVED REPORT EXAM: Two-dimensional and M-mode echocardiogram with Doppler and color Doppler. INDICATION Chest Pain M-Mode DIMENSIONS IVSd1.4 (0.7-1.1cm)Left Atrium (MM)4.7 (1.6-4.0cm) LVDd4.8 (3.5-5.6cm)Aortic Root3.4 (2.0-3.7cm) PWd0.9 (0.7-1.1cm)Aortic Cusp Exc.2.2 (1.5-2.0cm) LVDs2.7 (2.5-4.0cm) PWs1.0 cm Technically study due to poor acoustical windows. Normal left ventricular chamber size, systolic function and wall motion. Left ventricular ejection fraction estimated to be 60-65%. Mild left ventricular hypertrophy. No evidence of pericardial or pleural effusion. Right cardiac chamber sizes are within normal limits. Mild left atrial enlargement by 2D. Focal aortic valve sclerosis with adequate cusp excursion. Thickened mitral valve leaflets with normal excursion. Mild mitral annulus and aortic root calcification. Pulmonic valve not well visualized. Normal tricuspid valve structure. IVC is normal in size and collapsible with respiration. A color flow and spectral Doppler study was performed and revealed: No aortic regurgitation. No mitral regurgitation. Mitral diastolic velocities suggest reduced left ventricular relaxation c/w diastolic dysfunction grade 2. No tricuspid regurgitation.
[2017-09-09] MEDS ORDERED: Metoprolol Tartrate 12.5mg TAB ORAL SCH (21:00)
--- NOTE | 2017-09-11 09:42 | Diagnostic Imaging Report ---
APPROVED REPORT CPT Code: 59114 Present Symptoms Comments: Screening BILATERAL: Imaging reveals a patent deep venous system bilaterally. There is no evidence of thrombus within the femoral, popliteal or tibial segments. The greater saphenous veins are also within normal limits. Doppler indicates normal spontaneous flow within these segments.
--- NOTE | 2017-09-11 11:09 | Discharge Summary ---
Discharge Summary Hospital Course Date of Admission Sep 07, 2017 at 19:07 Date of Discharge Sep 09, 2017 at 18:14 Admitting Diagnosis acute coronary syndrome MARIE Jean is a 62 year old male who was admitted on Sep 07, 2017 at 19:07 for Acute Coronary Syndrome Hospital Course [id number] Discharge Discharge Disposition Patient was discharged to Home (01) Discharge Diagnoses: Danya Carrera NP Sep 11, 2017 11:09
--- NOTE | 2017-09-12 01:01 | Discharge Summary 2 SIG ---
DATE OF ADMISSION: 09/07/2017 DATE OF DISCHARGE: 09/09/2017 CONSULTANTS: 1. Phyllis Sampson M.D. 2. Alden Lora M.D. BRIEF HOSPITAL COURSE: The patient is a 62-year-old male with no medical history, presented to ED complaining of left shoulder pain. He states the pain was pleuritic. There was no cough. He had subjective fever and chills. On initial evaluation at ED, he was found to have leukocytosis. WBC was elevated to 18. Chest x-ray showed pulmonary edema with no fluid infiltrates. He was started on IV vancomycin and cefepime. Cefepime was eventually transitioned to ceftriaxone. Influenza A and B were negative. He had a blood culture done that did not isolate any growth. Venous duplex was negative for DVT bilaterally. He had mild pyuria. Urine culture with mixed Gram-positive organisms with low count. Antibiotic was discontinued. He was discahrged home. He was informed to follow up with primary doctor in a week. FINAL DIAGNOSES: 1. Left shoulder pain. 2. Fever. 3. Leukocytosis. 4. Diabetes mellitus type 2. DISPOSITION: The patient was discharged home. DISCHARGE MEDICATIONS: A prescription was called in to patient's pharmacy. FOLLOWUP: Follow up with PMD in a week. Moi Dumont MD I have been assigned to dictate discharge summary on this account and I was not involved in the patient's management. Danya Carrera N.P. DR: JEAN JOB#: [id number] CC: [email or web address]
--- NOTE | 2017-09-19 15:43 | Cardiology Report ---
APPROVED REPORT EKG Measurement Heart [id number] Atrial fibrillation with rapid ventricular response Abnormal ECG
== END 2017-09-09 18:14 | disposition home or self-care (01) | DRG 556 ==
LOC: EMR 18:30 → 2E 19:07 → EDBEDREQ 23:52
DX: M25.512 Pain in left shoulder (principal); N39.0 Urinary tract infection, site not specified; E11.9 Type 2 diabetes mellitus without complications; D72.829 Elevated white blood cell count, unspecified; R50.9 Fever, unspecified; R00.0 Tachycardia, unspecified
CPT/HCPCS: 36415; 71010; 71020; 80053; 80069; 81003; 82550; 82962; 83605; 83615; 83880; 84484; 85025; 85379; 85610; 85730; 86703; 86710; 87040; 87086; 93005; 93306; 93970; 94664; 99285